=== PATIENT | female | born 1990 | race Two or more races ===

== ENCOUNTER 2023-08-04 12:57 | Emergency (ER) | payer MEDICAID, OTHER ==
[~2023-08-04] VITALS: Ht 165.1 cm; Wt 55.0 kg
[2023-08-04 15:09] VITALS: BP 102/66; PULSE 86; RESP 18; TEMP 98.4; O2SAT 99
[2023-08-04] MEDS ORDERED: ALPRAZolam 0.5 MG TAB PO ONE (15:30)
[2023-08-04] MEDS ORDERED: ALPR1TAB2 PO (17:23)
== END 2023-08-04 17:27 | disposition home or self-care (01) ==
LOC: ER 12:57 → EDBD 12:57 → ER 17:27
DX: F41.9 Anxiety disorder, unspecified (principal); F41.0 Panic disorder [episodic paroxysmal anxiety]